=== PATIENT | male | born 1955 | race Caucasian/White ===

== ENCOUNTER 2017-11-21 09:15 | Outpatient (CLI) | payer OTHER ==
[2017-11-21 09:56] LABS: #Eosinphils 0.3 thou/uL (0.0-0.7); #Lymphocytes 1.9 thou/uL (1.20-3.40); #Monocytes 0.5 thou/uL (0.11-0.59); #Neutrophils 3.3 thou/uL (1.40-6.50); %Eosinophils 4.4 % (0.0-10.0); %Lymphocytes 32.5 % (21.0-51.0); %Monocytes 8.3 % (0.0-10.0); %Neutrophils 54.9 % (42.0-75.0); Hemoglobin 16.3 g/dL (14.0-18.0); Mean Corpuscular HGB CONC 34.8 g/dL (32.0-36.0); Mean Corpuscular Hemoglobin 32.8 pg (27.0-31.0); Mean Corpuscular Volume 94.2 fl (80.0-94.0); Mean Platelet Volume 7.1 fL (7.4-10.4); Platelet Count 203 thou/uL (130-400); RBC Distribution Width 11.8 % (11.5-14.5); Red Blood Cell (RBC) Count 4.98 mill/uL (4.70-6.10)
[2017-11-21 10:16] LABS: Anion Gap 13 mmol/L (10-20); BUN (Urea Nitrogen) 11 mg/dL (8.4-25.7); Calc. Creatinine Clearance 0 mL/min (70-130); Calcium 9.3 mg/dL (7.8-10.44); Carbon Dioxide 24 mmol/L (23-31); Chloride 105 mmol/L (98-107); Estimated GFR-MDRD Greater than 90; Glucose 128 mg/dL (80-115); Potassium 3.9 mmol/L (3.5-5.1); Sodium 138 mmol/L (136-145)
== END 2017-11-21 09:16 | disposition home or self-care (01) ==
LOC: LABBT 09:15
PROVIDERS: ATTEND Orthopaedic Surgery Hand Surgery
DX: Z01.812 Encounter for preprocedural laboratory examination (principal); G56.01 Carpal tunnel syndrome, right upper limb
CPT/HCPCS: 80048; 85025; 85652; 93005; 93010

== ENCOUNTER 2017-11-26 08:46 | Day surgery (SDC) | payer OTHER ==
[2017-11-21 09:46] VITALS: BMI 52.2
[2017-11-26] MEDS ORDERED: Fentanyl 100 MCG/2 ML VIAL ONE ×2 (11:05→11:38)
[2017-11-26] MEDS ORDERED: Midazolam HCl 2 mg/2 ml Vial ONE (11:05)
[2017-11-26] MEDS ORDERED: HYDROmorphone 0.5 MG/0.5 ML SYRINGE ONE (11:05)
[2017-11-26] MEDS ORDERED: Bacitracin Zinc Ointment 30 gm TUBE ONE (11:06)
[2017-11-26] MEDS ORDERED: Betamet Acet/Betamet Na Ph 30 MG/5 ML VIAL ONE (11:06)
[2017-11-26] MEDS ORDERED: Bupivacaine PF 0.5% 30 ML VIAL ONE (11:06)
[2017-11-26] MEDS ORDERED: Ketorolac Tromethamine 30 MG/ML VIAL ONE ×2 (12:51→14:27)
--- NOTE | 2017-11-26 13:24 | OP ---
DATE OF PROCEDURE: 11/26/2017 PREOPERATIVE DIAGNOSES: 1. Right carpal tunnel syndrome. 2. Diabetes. 3. Morbid obesity. POSTOPERATIVE DIAGNOSES: 1. Right carpal tunnel syndrome. 2. Diabetes. 3. Morbid obesity. FINDINGS: A very tight carpal ligament over his entire proximal 2/3 with compression and stippling h ourglass formation of the median nerve in the proximal two-thirds of the carpal canal. PROCEDURE PERFORMED: 1. Open, mini technique, carpal tunnel release/transverse carpal tunnel release, transcarpal ligamen t release. 2. Injection of Celestone, 3 mL into the wound over the median nerve drip technique. Other injectio ns; Marcaine 0.5%, no epinephrine 20 mL total (10 prior to incision and 10 after incision). INDICATION: Pain, numbness and tingling. Clinical exam and injection response consistent with the E MG carpal tunnel syndrome, right medial wrist. DESCRIPTION OF PROCEDURE: After successful general LMA technique, the limb was prepped and draped. Before we made our incision, we outlined in a standard fashion along Schmid's cardinal line distal an d proximal 5 mm distal to the volar flexion crease in line with the ring finger. We carried through the skin and subcutaneous tissue, staying slightly ulnar to the underlying palmaris longus tendon, tr anscarpal ligament was entered from the midpoint distally using a combination of Hamlin blade and ___ _ was released. Type 1 takeoff of the motor branch was observed and protected. We then released it using the combination of tunneling and visualization proximally where here the transcarpal was very t ight, requiring only incremental 5 mm releases at one time. Once we made this release, visualized the median nerve, here we saw almost 1 cm area of mild narrowin g or flattening and stippling. Celestone was placed in the area of stippling and flattening, hemostasis obtained. The wound was arun sed with a 4-0 nylon interrupted mattress pattern. A bulky dressing was applied. The patient left t he operating room without evidence of anesthetic complication.
[2017-11-26] MEDS ORDERED: PROPOFOL 200 MG/20 ML VIAL ONE (14:27)
[2017-11-26] MEDS ORDERED: Lidocaine 1% PF 5 ML VIAL ONE (14:27)
[2017-11-26] MEDS ORDERED: PHENYLEPHRINE-NS 100 MCG/ML 10 ML SYRINGE ONE (14:27)
== END 2017-11-26 15:00 | disposition home or self-care (01) ==
LOC: SDC 08:46
PROVIDERS: ATTEND Orthopaedic Surgery Hand Surgery
PROC: 01N50ZZ Release Median Nerve, Open Approach (ICD-10-PCS; principal; 2017-11-26)
DX: G56.01 Carpal tunnel syndrome, right upper limb (principal); E11.9 Type 2 diabetes mellitus without complications; E66.01 Morbid (severe) obesity due to excess calories; Z68.43 Body mass index [BMI] 50.0-59.9, adult; Z87.891 Personal history of nicotine dependence; Z79.82 Long term (current) use of aspirin; Z79.84 Long term (current) use of oral hypoglycemic drugs; Z79.899 Other long term (current) drug therapy
CPT/HCPCS: 96372; J0702; J1170; J1885; J2001; J2250; J2704; J3010; S0020

== ENCOUNTER 2018-11-25 08:25 | Day surgery (SDC) | payer OTHER ==
[2018-11-24 12:59] VITALS: BMI 52.2
[2018-11-25] MEDS ORDERED: PROPOFOL 200 MG/20 ML VIAL ONE (11:14)
--- NOTE | 2018-11-25 16:40 | OP ---
DATE OF PROCEDURE: 11/25/2018 PROCEDURE PERFORMED: Colonoscopy with biopsy and polypectomy. INDICATIONS FOR PROCEDURE: Prior history of adenomatous polyps of the colon. DESCRIPTION OF PROCEDURE: After the risks and benefits of the procedure were explained to the patient including risks of bleeding, infection, perforation, reaction to anesthesia, aspiration and/or pain, informed consent was obtained. The patient was then taken to the endoscopy suite, where deep sedation was administered via propofol and anesthesia support. Once adequate sedation was achieved, the standard colonoscope was introduced into the rectum after a digital rectal exam and advanced to the cecum with some difficulty due to tortuosity of the colon. The quality of the prep was fair, but converted to a good prep with aggressive irrigation and suctioning. The patient tolerated the procedure well with no immediate perioperative complications. Upon completion of the procedure, all equipment was removed from the patient and he was transferred to Day Stay in satisfactory condition. FINDINGS: Digital rectal exam: Normal findings were seen on external examination. Colon findings: Normal-appearing mucosa was seen at the ileocecal valve and appendiceal orifice; however, a 3 mm polyp was seen in the cecum and completely removed with biopsy forceps. It was retrieved and placed in a specimen jar for evaluation. A 4 to 5 mm polyp was seen in the ascending colon and completely removed with cold snare polypectomy, it was retrieved and placed in a specimen jar for evaluation. Three additional polyps measuring 3 to 5 mm in size were seen in the transverse colon and completely removed with cold snare polypectomy. They were all retrieved and placed in a specimen jar for evaluation. A 5 mm flat sessile polyp was seen in the descending colon and completely removed with snare cautery polypectomy. It was retrieved and placed in a specimen jar for evaluation. The mucosa seen in the sigmoid colon was normal. Lastly, a 3 mm polyp was seen in the rectum and completely removed with biopsy forceps. It was retrieved and placed in a specimen jar for evaluation. Small internal hemorrhoids were seen on rectal retroflexion. IMPRESSION: 1. A 3 mm cecal polyp, status post removal by biopsy forceps. 2. A 4 to 5 mm ascending colon polyp, status post cold snare polypectomy. 3. Three polyps in the transverse colon measuring 3 to 5 mm in size, status post cold snare polypectomy. 4. A 5 mm descending colon polyp, status post hot snare polypectomy. 5. A 3 mm rectal polyp, status post biopsy forceps. 6. Small internal hemorrhoids. RECOMMENDATIONS: 1. We will follow up on the biopsy results with a repeat colonoscopy interval depending on pathology report. If all the polyps are hyperplastic, would repeat the colonoscopy in no greater than 5 years. 2. Would recommend higher fiber diet given the presence of internal hemorrhoids. 3. Follow up in the GI clinic as needed. Job ID: [id number]
== END 2018-11-25 12:30 | disposition home or self-care (01) ==
LOC: SDC 08:25
PROVIDERS: ATTEND Internal Medicine
PROC: 0DBE8ZZ Excision of Large Intestine, Via Natural or Artificial Opening Endoscopic (ICD-10-PCS; principal; 2018-11-25)
PROC: 0DBE8ZX Excision of Large Intestine, Via Natural or Artificial Opening Endoscopic, Diagnostic (ICD-10-PCS; principal; 2018-11-25)
DX: Z12.11 Encounter for screening for malignant neoplasm of colon (principal); D12.0 Benign neoplasm of cecum; D12.2 Benign neoplasm of ascending colon; D12.3 Benign neoplasm of transverse colon; K62.1 Rectal polyp; K64.8 Other hemorrhoids; Z86.010 Personal history of colon polyps
CPT/HCPCS: 88305; J2704

== ENCOUNTER 2019-08-18 08:30 | Outpatient (CLI) | payer OTHER | END 2019-08-18 08:31 | disposition home or self-care (01) | LOC: DTY/OP 08:30 | PROVIDERS: ATTEND Specialist | DX: Z01.818 Encounter for other preprocedural examination (principal); E66.01 Morbid (severe) obesity due to excess calories | CPT/HCPCS: 97802 ==

== ENCOUNTER 2019-09-16 08:46 | Outpatient (CLI) | payer OTHER | END 2019-09-16 08:47 | disposition home or self-care (01) | LOC: DTY/OP 08:46 | PROVIDERS: ATTEND Specialist | DX: Z01.818 Encounter for other preprocedural examination (principal); E66.01 Morbid (severe) obesity due to excess calories | CPT/HCPCS: 97802 ==

== ENCOUNTER 2019-09-30 08:16 | Outpatient (CLI) | payer OTHER ==
--- NOTE | 2019-09-30 09:29 | RAD ---
EXAM: Single view of the chest HISTORY: Preoperative radiograph COMPARISON: None FINDINGS: Single view of the chest shows a normal sized cardiomediastinal silhouette. There is no wei dence of consolidation, mass, or pleural effusion. The bones are unremarkable. IMPRESSION: No evidence of acute cardiopulmonary disease
== END 2019-09-30 08:17 | disposition home or self-care (01) ==
LOC: LABBT 08:16
PROVIDERS: ATTEND Internal Medicine Cardiovascular Disease
DX: Z01.818 Encounter for other preprocedural examination (principal)
CPT/HCPCS: 71045; 93005; 93010

== ENCOUNTER 2019-10-07 05:41 | Inpatient (IN) | payer OTHER ==
[2019-10-07] MEDS ORDERED: Fentanyl 100 MCG/2 ML VIAL ONE (07:16)
[2019-10-07] MEDS ORDERED: Midazolam HCl 2 mg/2 ml Vial ONE (07:16)
[2019-10-07] MEDS ORDERED: Heparin 10,000 UNITS/1 ML VIAL ONE (07:16)
[2019-10-07] MEDS ORDERED: Protamine Sulfate 50 MG/5 ML VIAL ONE (07:43)
[2019-10-07] MEDS ORDERED: Iopamidol 370 76% 50 ML VIAL FS ONE (09:39)
[2019-10-07] MEDS ORDERED: Iopamidol 370 76% 100 ML VIAL ONE (09:39)
[2019-10-07] MEDS: Carvedilol 3.125 MG TAB PO SCH (17:16)
[2019-10-07 17:36] VITALS: BMI 50.0
[2019-10-08 05:13] LABS: Anion Gap 12 mmol/L (10-20); BUN (Urea Nitrogen) 12 mg/dL (8.4-25.7); Calc. Creatinine Clearance 256 mL/min (70-130); Calcium 9.3 mg/dL (7.8-10.44); Carbon Dioxide 24 mmol/L (23-31); Chloride 104 mmol/L (98-107); Estimated GFR-MDRD Greater than 90; Glucose 112 mg/dL (80-115); Potassium 3.9 mmol/L (3.5-5.1); Sodium 136 mmol/L (136-145)
--- NOTE | 2019-10-08 06:12 | HP ---
INTERIM NOTE Please see office note from September 17, 2019. Mr. Macias underwent cardiac catheterization today, which revealed normal coronary arteries with moderate left ventricular dysfunction with ejection fraction of 30 % to 35%. He also had very frequent PVCs and would have long runs of ventricular bigeminy. He was measured for a Zoll LifeVest. However, he is too big for their largest size and is not a candidate for Zoll. PHYSICAL EXAMINATION: VITAL SIGNS: Blood pressure 118/70, pulse of 80. CHEST: Clear. CARDIAC: S1 and S2 are normal without any S3 or S4 or murmurs. ABDOMEN: Very obese. Normal bowel sounds. No tenderness. EXTREMITIES: Revealed trace pretibial edema. IMPRESSION: 1. Nonischemic cardiomyopathy with ejection fraction of 30% to 35%. 2. Preoperative cardiac evaluation prior to bariatric surgery with Dr. Lnag. 3. Morbid obesity. 4. Frequent PVCs in a bigeminal pattern. 5. Hypercholesterolemia with LDL down to 68 on the atorvastatin. 6. Hypertension. 7. Diabetes. 8. Former smoker, stopped in 2001. PLAN: With inability to use a Zoll LifeVest and frequent PVCs, he would be admitted, started on beta blockade and monitored for any worse heart rhythm disturbances. He also will be placed on Entresto and furosemide, and his olmesartan/hydrochlorothiazide will be discontinued. With his left ventricular dysfunction, he will be monitored for more significant arrhythmias. Electrophysiology consultation will be obtained. If beta parminder does not suppress his very frequent PVCs, consideration may be given to PVC ablation. Job ID: [id number] MTDD
[2019-10-08] MEDS: Furosemide 20 MG TAB PO SCH (08:02)
[2019-10-08] MEDS: Carvedilol 3.125 MG TAB PO SCH ×2 (08:02→17:40)
[2019-10-08] MEDS ORDERED: FLU VACC QS2019-20(6MOS UP)/PF 60 MCG/0.5 ML SYRINGE IM ONE (09:00)
[2019-10-08] MEDS: Aspirin 81 mg Enteric Coated Tablet PO SCH (10:13)
[2019-10-08] MEDS: Allopurinol 300 MG TAB PO SCH (10:13)
--- NOTE | 2019-10-08 13:36 | CON ---
DATE OF CONSULTATION: 10/08/2019 HISTORY OF PRESENT ILLNESS: I am seeing Mr. Macias at our [facility] Telemetry Floor as an Electrophysiology incident response consultant. His problems are: 1. Newly found nonischemic dilated cardiomyopathy with a reduced LVEF 30% to 35%. a. NYHA class 2 functional status. b. Left heart catheterization on 10/07/2019 reveals normal coronary arteries, LVEF 30% to 35%. 2. Frequent PVCs, monomorphic. 3. Morbid obesity. 4. Type 2 diabetes. 5. Hypertension. 6. Hypercholesterolemia. ALLERGIES: NONE NOTED. MEDICATIONS: At home included: 1. Metformin. 2. Allopurinol. 3. Farxiga. 4. Aspirin. 5. Olmesartan/hydrochlorothiazide. 6. Bydureon. 7. Atorvastatin. SUBJECTIVE: Mr. Macias was planned to undergo a bariatric surgery and was noted to have frequent PVCs, hence underwent full heart evaluation by Dr. Saleh. His echo was revealing LVEF 30% to 35%, nuclear study was 32%, eventually underwent left heart catheterization in our facility on 10/07/2019. He is noted to have normal coronary arteries, but continues frequent PVCs were seen. He is fairly asymptomatic on this regard. He denies dizziness, loss of consciousness, but does occasionally feel his heart beating irregular. He does not pass out. 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 He has no PND or orthopnea. No . No fever, chills, or cough. Rest of 12-point system otherwise unremarkable. PAST MEDICAL HISTORY: As above. PAST SURGICAL HISTORY: Significant for vasectomy and lithotripsy for kidney stones. FAMILY HISTORY: Significant for mother alive with history of breast cancer, history of hypertension. Father with heart murmur. 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 Has not smoked for the last 20 years. Denies EtOH or drug use. OBJECTIVE DATA: VITAL SIGNS: Blood pressure is 125/69, heart rate 71, respiratory rate 16, and temperature 98.3 degrees Fahrenheit. GENERAL: Alert and oriented man, in no apparent distress. NECK: Supple. Jugular veins not distended. CHEST: Coarse without crackles. HEART: Sounds are regular to rate and rhythm. No murmur or gallop. ABDOMEN: Benign. Bowel sounds positive. Obesity noted. Masses are difficult to palpate. EXTREMITIES: Lower extremity without edema, clubbing, or cyanosis. NEUROLOGIC: The patient is nonfocal. MUSCULOSKELETAL: Without joint swelling or deformity. SKIN: Without rash. DATABASE: EKG is reviewed. Baseline EKG reveals sinus rhythm, narrow QRS, first-degree AV block. The frequent PVCs are noted, which appears to be monomorphic and on occasion a bigeminy pattern is seen. LABORATORY DATA: Sodium 136, potassium 3.9, BUN is 12, and creatinine 0.7. The white cell count is 6.6 from September 27, hemoglobin 15.6, and platelet count is 176. ASSESSMENT AND PLAN: Mr. Macias is a 63-year-old gentleman with history of hypertension and diabetes, who is now presenting with frequent premature ventricular contractions and his cardiac workup is significant for marked nonischemic cardiomyopathy with LVEF at 30% to 35%. Despite that, his symptoms are fairly moderate. Although he is fairly inactive, he is not feeling markedly dyspneic or limiting his activities. NYHA class 2 functional status currently. He would also deny significant arrhythmia symptoms apart from mild skipping heartbeat sensations. We discussed the concern regarding his cardiomyopathy, including potential for sudden cardiac and ventricular arrhythmias. Hence, there is a relatively narrow QRS lack of symptoms to suggest ongoing ventricular arrhythmias. His risk is relatively low. His isolated monomorphic PVCs could contribute to his LV dysfunction and suppression could be desired. Initially, optimize heart failure management with maximized beta parminder therapy could be initiated. If that fails, additional amiodarone could be considered for suppression. Once these efforts exhausted, PVC ablation is a potential option as well. Despite of these efforts, if his LVEF remains less than 35% in three months, he might benefit from an ICD implant for primary prophylaxis of sudden cardiac . We also discussed the interim arrhythmia risk, hence he is unable to wear a LifeVest, on the other hand this should be reasonably low if once achieving optimal medical therapy. I think ICD implantation at this point would be higher risk than the benefit. We will have to follow with you on our patient. Thank you for allowing me to participate in the care of this patient. Discussed with Dr. Saleh. Job ID: [id number]
[2019-10-08] MEDS ORDERED: Atorvastatin Calcium 40 MG TAB PO SCH (21:00)
--- NOTE | 2019-10-08 21:02 | EKG ---
Test Reason : Blood Pressure : / mmHG Vent. Rate : 074 BPM Atrial Rate : 074 BPM P-R Int : 000 ms QRS Dur : 094 ms QT Int : 368 ms P-R-T Axes : 052 080 066 degrees QTc Int : 408 ms Sinus rhythm with Premature atrial complexes Low voltage QRS Incomplete right bundle branch block Septal infarct (cited on or before 21-NOV-2017) Abnormal ECG When compared with ECG of 30-SEP-2019 09:16, Premature atrial complexes are now Present NV interval has decreased Confirmed by Yoni BERRIOS ([id number]) on 10/08/2019 9:01:37 PM Referred By: PATITO Confirmed By:Yoni BERRIOS
[2019-10-09 04:59] LABS: Anion Gap 16 mmol/L (10-20); BUN (Urea Nitrogen) 11 mg/dL (8.4-25.7); Calc. Creatinine Clearance 236 mL/min (70-130); Calcium 9.2 mg/dL (7.8-10.44); Carbon Dioxide 21 mmol/L (23-31); Chloride 104 mmol/L (98-107); Estimated GFR-MDRD Greater than 90; Glucose 120 mg/dL (80-115); Potassium 3.6 mmol/L (3.5-5.1); Sodium 137 mmol/L (136-145)
[2019-10-09] MEDS: Furosemide 20 MG TAB PO SCH (08:23)
[2019-10-09] MEDS: Aspirin 81 mg Enteric Coated Tablet PO SCH (08:23)
[2019-10-09] MEDS: Carvedilol 3.125 MG TAB PO SCH (08:23)
[2019-10-09] MEDS: Allopurinol 300 MG TAB PO SCH (08:23)
[2019-10-09] MEDS ORDERED: Empagliflozin 10 MG TAB PO SCH (09:00)
--- NOTE | 2019-10-09 14:00 | PDOC.EP ---
- Subjective Date: 10/09/19 Time: 12:00 Interval History: follow up for PVC and cardiomyopathy. Patient feels well. Denies palpitations or new cardiac complaints. - Review of Systems Constitutional: denies: chills, fever, malaise, sweats, weakness, other Respiratory: denies: cough, dry, hemoptysis, pleuritic pain, shortness of breath , SOB with excertion, sputum, wheezing, other Cardiology: denies: chest pain, edema, heart racing, light headedness, paroxysmal noc. dyspnea, orthopnea, palpitations, passing out, pleuritic pain, pressure, swelling, other Gastrointestinal: denies: abdominal pain, constipation, diarrhea, hematochezia, melena, nausea, vomitting, other Musculoskeletal: denies: unstable gait, falls, neck pain, shoulder pain, arm pain, hand pain, leg pain, foot pain, other - Objective Allergies/Adverse Reactions: Allergies Allergy/AdvReac Type Severity Reaction Status Date / Time No Known Allergies Allergy Verified 11/21/17 09:48 Current Medications Allopurinol (Zyloprim) 300 mg PO DAILY [facility] Last Admin: 10/09/19 08:23 Dose: 300 mg Aspirin (Ecotrin) 81 mg PO DAILY [facility] Last Admin: 10/09/19 08:23 Dose: 81 mg Atorvastatin Calcium (Lipitor) 40 mg PO [facility] Last Admin: 10/08/19 20:53 Dose: 40 mg Carvedilol (Coreg) 3.125 mg PO BID-[facility] Last Admin: 10/09/19 08:23 Dose: 3.125 mg Furosemide (Lasix) 20 mg PO DAILY [facility] Last Admin: 10/09/19 08:23 Dose: 20 mg Metformin HCl (Glucophage) 500 mg PO BID-[facility] Miscellaneous Medication (Jardiance) 10 mg PO DAILY [facility] Last Admin: 10/09/19 08:23 Dose: 10 mg Bydureon Inj 0 each [place] Sotomayor [facility] Sacubitril/Valsartan (Entresto 24 Mg-26 Mg Tablet) 0.5 tab PO BID [facility] Last Admin: 10/09/19 08:23 Dose: 0.5 tab Vital Signs & Weight: Vital Signs Temp Pulse Resp BP BP Pulse Ox 10/09/19 11:11 97.7 F 87 18 141/77 H 95 10/09/19 07:23 98.6 F 85 18 154/73 H 94 L 10/09/19 03:40 97.9 F 22 H 156/84 H 97 Weight 360 lb 3.2 oz I/O: I/O 10/08/19 10/09/19 10/10/19 06:59 06:59 06:59 Intake Total 240 2330 Output Total 725 Balance 240 1605 - Physical Exam General: alert & oriented x3, appears well, no apparent distress, speech clear, affect appropriate, other (morbidly obese) HEENT: mucus membranes moist, normocephaly Neck: supple neck, midline trachea, no JVD/HJR, no masses, no bruit Cardiology: regular rate and rhythm, no murmur, regular rate, regular rhythm Lungs: no wheeze, rales, rhonchi, decreased breath sounds Neurology: cranial nerve 2-12 intact, sensory function intact, no lateralizing findings - Labs Result Diagrams: 10/09/19 04:19 - EKG Interpretation EKG Method: Telemetry EKG shows: Sinus rhythm (frequent monomorphic PVCs) - Assessment/Plan Assessment/Plan: 1. PVC - moderate to high burden -monomorphic - recent initiation of betablocker therapy -assymptomatic 2. Cardiomyopathy, dilated - Non ischemic. Normal [facility] 10/07/2019 - EF 30-35% - habitus did not allow for Lifevest - possibly related to PVCs -GDMT per cardiology 3. Morbid obesity 4. HTN 5. DM2 Continue titrating up betablocker therapy as tolerated to treat PVCs. GDMT x 3 months then repeat echo. If EF remains <35%, consider ICD.
[2019-10-09 15:19] VITALS: BP 127/81; TEMP 98.6
--- NOTE | 2019-10-09 15:27 | DIS ---
DATE OF ADMISSION: 10/07/2019 DATE OF DISCHARGE: 10/09/2019 DISCHARGE DIAGNOSES: 1. Nonischemic cardiomyopathy with ejection fraction of 30% to 35%. 2. Normal coronary arteries. 3. Bigeminal premature ventricular contractions. 4. Hypertension. 5. Hypercholesterolemia, under good control. 6. Former smoker. 7. Morbid obesity, considering bariatric surgery. DISCHARGE MEDICATIONS: 1. Carvedilol 3.125 b.i.d. 2. Entresto 24/26 b.i.d. 3. Furosemide 20 mg q.a.m. 4. Allopurinol 300 daily. 5. Aspirin 81 mg daily. 6. Atorvastatin 40 mg q.p.m. 7. Farxiga 5 mg daily. 8. Bydureon injection 2 mg every 7 days. 9. Metformin 500 mg b.i.d. DISCHARGE DISPOSITION: The patient to be seen in 2 weeks with EKG and BMP. His medicines will need to be continually titrated. If he continues to have significant PVCs after further titration of the carvedilol, consideration could be given to amiodarone or possibly PVC ablation. HOSPITAL COURSE: Mr. Macias underwent cardiac catheterization, which revealed normal coronary arteries. His ejection fraction was 30% to 35% with moderate global hypokinesis. It was felt that he should be admitted with institution of therapy for his cardiomyopathy with bigeminal PVCs. He did have long runs of this for several minutes at a time. Attempt was made to fit him with a LifeVest, however, he was too large to use LifeVest and that could not be fitted. With institution of therapy with beta parminder, it seemed that he did not have as frequent or long episodes of bigeminal PVCs. Also, we discussed that he would limit his fluid intake to 1.5 quarts/day. He was walking in the [place] without any significant dyspnea at the time of discharge and will continue to be managed and his medications will be titrated as an outpatient. Job ID: [id number] MTDD
[2019-10-09] MEDS ORDERED: metFORMIN 500 MG TAB PO SCH (17:00)
[2019-10-11] MEDS ORDERED: BYDUREON INJ SC SCH (09:44)
== END 2019-10-09 17:00 | disposition home or self-care (01) | DRG 287 ==
LOC: CCL 05:41 → 2NO 16:55
PROVIDERS: ADMIT Internal Medicine Cardiovascular Disease; ATTEND Internal Medicine Cardiovascular Disease
PROC: 4A023N7 Measurement of Cardiac Sampling and Pressure, Left Heart, Percutaneous Approach (ICD-10-PCS; principal; 2019-10-07)
PROC: B2151ZZ Fluoroscopy of Left Heart using Low Osmolar Contrast (ICD-10-PCS; 2019-10-07)
PROC: B2111ZZ Fluoroscopy of Multiple Coronary Arteries using Low Osmolar Contrast (ICD-10-PCS; 2019-10-07)
DX: I42.0 Dilated cardiomyopathy (principal); Z68.42 Body mass index [BMI] 45.0-49.9, adult; I49.3 Ventricular premature depolarization; E66.01 Morbid (severe) obesity due to excess calories; E78.00 Pure hypercholesterolemia, unspecified; I10 Essential (primary) hypertension; E11.9 Type 2 diabetes mellitus without complications; E78.5 Hyperlipidemia, unspecified; J30.2 Other seasonal allergic rhinitis; K42.9 Umbilical hernia without obstruction or gangrene; Z87.891 Personal history of nicotine dependence; Z79.84 Long term (current) use of oral hypoglycemic drugs; Z79.82 Long term (current) use of aspirin; Z79.899 Other long term (current) drug therapy; Z98.52 Vasectomy status
CPT/HCPCS: 36415; 36416; 80048; 93005; 93010; 93458; 93798; 99152; 99153; C1769; J1644; J2250; J2720; J3010; Q9967

== ENCOUNTER 2019-10-20 13:00 | Outpatient (CLI) | payer OTHER | END 2019-10-20 13:01 | disposition home or self-care (01) | LOC: DTY/OP 13:00 | PROVIDERS: ATTEND Specialist | DX: Z01.818 Encounter for other preprocedural examination (principal); E66.01 Morbid (severe) obesity due to excess calories | CPT/HCPCS: 97802 ==

== ENCOUNTER 2019-11-18 13:00 | Outpatient (CLI) | payer OTHER | END 2019-11-18 13:01 | disposition home or self-care (01) | LOC: DTY/OP 13:00 | PROVIDERS: ATTEND Specialist | DX: Z01.818 Encounter for other preprocedural examination (principal); E66.01 Morbid (severe) obesity due to excess calories | CPT/HCPCS: 97802 ==